=== PATIENT | female | born 1950 | race Two or more races ===

== ENCOUNTER → 2016-07-09 | Outpatient (CLI) | payer MEDICARE, OTHER ==
--- NOTE | 2016-07-09 17:58 | RADRPT ---
PROCEDURE: Left knee radiographs. CLINICAL INDICATION: Left knee pain. TECHNIQUE: Three views. Weight bearing. Frontal, lateral, and patellar view. COMPARISON: No prior studies are available for comparison. FINDINGS: There is no acute fracture and there is no dislocation. There has been prior open reduction and int ernal fixation with a lateral plate and multiple screws transfixing the proximal tibia and lateral t ibial plateau. Alignment is satisfactory and there is solid bony union. The soft tissues are normal. There are degenerative changes with osteophytes arising from all 3 joint compartment margins. There is lateral joint compartment narrowing, subarticular sclerosis, and mild deformity. There is no lytic or blastic lesion. IMPRESSION: 1. Satisfactory postoperative appearance of the proximal tibia. 2. Moderate to severe degenerative changes of the left knee. 3. No acute abnormality. RPTAT: QQ .Michael Mckeon MD, MD Date Time Electronically viewed and signed by .Michael Mckeon MD, on 07/09/2016 17:57 .R/
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
== END | disposition home or self-care (01) ==
LOC: HKI 13:38
DX: M17.12 Unilateral primary osteoarthritis, left knee (principal); I10 Essential (primary) hypertension
CPT/HCPCS: 20610; 73562; G0463

== ENCOUNTER → 2016-12-30 | Outpatient (CLI) | payer MEDICARE, OTHER ==
--- NOTE | 2016-12-31 04:34 | HKNOTE ---
DATE OF SERVICE: 12/30/2016 MAIN COMPLAINT: Pain in both knees. HISTORY OF MAIN COMPLAINT: The patient continues to complain of pain in both knees but especially on the left side. If anything, the pain has become much worse. The cortisone injection I gave her gave her excellent relief, but it only lasted for 8 weeks. She states: "I'm ready for knee surgery." She comes in with her daughter. She can only walk about a block at a time without stopping. She gets pain with every step that she takes. She has a crunching and popping in the knee. She has been taking meloxicam for her pain, which seems to help slightly. PHYSICAL EXAMINATION: VITAL SIGNS: Weight 150. Height 5 foot 2 inches. Blood pressure 145/70 and temperature 97.7. LEFT KNEE EXAMINATION: Full range of motion. Marked crepitus in the knee and under the patella. Pain on forced flexion of the knee, tender over the medial joint line. MANAGEMENT: The patient is advised that she may possibly need another cortisone injection. If that does not work, we can try Visco supplementation. Under sterile conditions, she was given injection of 2 mL of Kenalog and 6 mL of 2 percent lidocaine into the left knee, and she will be seen again as necessary. Dictated By: Theo Laura MD /brian/alexander /Document#: [id number]
== END | disposition home or self-care (01) ==
LOC: HKI 14:47
DX: M25.562 Pain in left knee (principal); M25.561 Pain in right knee
CPT/HCPCS: 20610; G0463

== ENCOUNTER → 2017-02-12 | Outpatient (CLI) | payer MEDICARE, OTHER ==
--- NOTE | 2017-02-13 03:51 | HKNOTE ---
DATE OF SERVICE: 02/12/2017 The patient complains that the pain in her left knee has become progressively worse. A cortisone in jection given into her knee in December did not give her any relief at all. Pain continues to be s evere. She comes in to discuss surgery on her knee. She takes Meloxicam b.i.d., but this does not seem to help much. She can walk 3 blocks and then she is forced to stop. Note that before June of this year she was able to walk 3 miles a day. PHYSICAL EXAMINATION: VITAL SIGNS: Height 5 foot 2-1/2 inches. Weight 150 pounds. Blood pressure 115/70, temperature 98 .0. LEFT KNEE: Long medial scar (from the ORIF of the tibia). 6+ crepitus in the knee, none in the pat pari. 3+ effusion. Pain at the limits of motion. No tenderness. IMAGING: The most recent x-rays of the knee were reviewed. These show a plate and 6 screws in the proximal tibia. The joint spaces medially and laterally as well as patellofemoral show severe narro wing with secondary changes including osteophyte formation and subchondral sclerosis. They are poin ts of awus-er-efjx contact. DIAGNOSES: 1. Status post internal fixation of fractured proximal left tibia. 2. Severe degenerative osteoarthritis of the left knee. MANAGEMENT: The patient advised that the next step for her would be to have a knee replacement oper ation. There is no doubt that she will have to have it sooner or later. She might as well proceed with the operation and enjoy her life without knee pain. The operation of total knee replacement was discussed with her in a fair amount of detail including some of the major possible complications. Drawings were made of the actual technique. Some of the major possible complications were discussed. Postoperative course was discussed. The patient was given my manual titled "Arthritis of the Knee Joint" which contains information conc erning the various alternatives of treatment. It includes various forms of conservative treatment, i ncluding the use of nonsteroidal anti-inflammatory medications and their dangers. Various surgical a lternatives are discussed. The technique of total knee replacement is discussed in detail, including possible complications. Included also is a section on the possible complications of blood transfusi on, a section on postoperative precautions, and an exercise program to follow at home after total kn ee replacement. The long-term care of a total knee replacement implant is also covered in detail. Th e patient was instructed to read this manual in its entirety since it is, in and of itself, a form o f informed consent. After reading this manual, the patient will make a list of further questions chata t may not have been covered adequately. The patient was further advised that this manual, although e xhaustive in nature, is only intended to supplement and complement a one-on-one discussion with me. The patient was referred to my website, [employer]. I recommended that the hardware be removed as one stage and when that has healed up, that we then pr oceed with a knee replacement about 2 months later. Patient will call when she is ready to consider proceeding with the hardware removal. Dictated By: MERARY TEJEDA/MINDY Conf#: [id number] DID#: [id number]
== END | disposition home or self-care (01) ==
LOC: HKI 10:47
DX: M17.12 Unilateral primary osteoarthritis, left knee (principal)
CPT/HCPCS: G0463